=== PATIENT | female | born 1975 | race Native Hawaiian/Other Pacific Islander ===

== ENCOUNTER → 2019-05-26 | Outpatient (CLI) | payer BC ==
[~2019-05-26] MED LIST: BONTRIL PO; HYDR25TA60 PO
== END ==
LOC: LAB 21:22
DX: Z00.00 Encounter for general adult medical examination without abnormal findings (principal)
CPT/HCPCS: 82272; 87015; 87045; 87328; 87329; 87899

== ENCOUNTER 2020-09-11 07:47 | Outpatient (CLI) | payer OTHER | END 2020-09-11 19:04 | disposition home or self-care (01) | LOC: CT 07:47 | PROVIDERS: ATTEND Surgery | DX: K57.92 Diverticulitis of intestine, part unspecified, without perforation or abscess without bleeding (principal) | CPT/HCPCS: 36415; 82565; 84520; Q9963 ==

== ENCOUNTER 2020-09-12 11:32 | Outpatient (CLI) | payer OTHER | END 2020-09-12 20:13 | disposition home or self-care (01) | LOC: LABW 11:32 | PROVIDERS: ATTEND Nurse Practitioner Family | DX: R93.5 Abnormal findings on diagnostic imaging of other abdominal regions, including retroperitoneum (principal); N83.291 Other ovarian cyst, right side; R18.8 Other ascites | CPT/HCPCS: 36415; 86304 ==